=== PATIENT | male | born 1990 | race American Indian/Alaskan Native ===

== ENCOUNTER 2016-12-05 21:50 | Emergency (ER) | payer SELFPAY ==
--- NOTE | 2016-12-05 23:23 | Cat Scan Report ---
FINAL REPORT PROCEDURE: CT HEAD/BRAIN WO CON TECHNIQUE: Computerized tomography of the head was performed without contrast material. HISTORY: LOC with injury COMPARISON: No prior studies are available for comparison. FINDINGS: Skull and scalp: Normal. Paranasal sinuses: Normal. Ventricles and subarachnoid spaces: Normal. Cerebrum: No evidence of hemorrhage, acute infarction or mass . Cerebellum and brainstem: No evidence of hemorrhage, acute infarction or mass. Vasculature: Normal. Comments: None. IMPRESSION: Normal Examination
--- NOTE | 2016-12-05 23:27 | Cat Scan Report ---
FINAL REPORT EXAM: CT NECK WO CON HISTORY: LOC with injury TECHNIQUE: CT imaging is acquired through the neck/cervical spine without contrast. Transaxial, coronal and sagittal reformations are provided. PRIORS: None. FINDINGS: The cervical spine is intact. Vertebral body heights are preserved. No acute fracture or listhesis. Atlanto-dens interval and odontoid process are intact. Intervertebral disc spaces are preserved. No perivertebral soft tissue swelling or hematoma identified. Limited soft tissue exam of the visualized neck is unremarkable. IMPRESSION: No acute cervical spine fracture identified. Correlate with physical exam and follow up as warranted.
[2016-12-06] MEDS ORDERED: MOTRIN PO ONE (01:49)
--- NOTE | 2016-12-06 01:50 | Emergency Department Report ---
ED Head Trauma HPI - General Chief complaint: Head Injury Stated complaint: FALL Time Seen by Provider: 12/06/16 01:46 Source: patient Mode of arrival: Ambulatory Limitations: No Limitations - History of Present Illness Initial comments: This is a 26-year-old male. He is previously unknown to me. The patient presents to the ER complaining of head pain after he banged his head on a car door. He reports a transient loss of vision and felt like he "blacked out." For a second. However, he does indicate that he was awake the whole time. He denies neck pain, vomiting, chest pain, shortness of breath. The headache is throbbing, and constant. It does not radiate anywhere. MD Complaint: head injury, head pain -: Sudden Arrival Conditions: Negative: C-spine immobilization present, spinal board immobilization present Location: frontal Previous Trauma to this Area: No Place: work Radiation: none Severity: mild Consistency: constant Other Injuries: none Associated Symptoms: vision changes. denies: confusion, amnesia, repetitive questioning, nausea, vomiting, vertigo, weakness, tingling, neck pain - Related Data Allergies/Adverse reactions: Allergies Allergy/AdvReac Type Severity Reaction Status Date / Time No Known Allergies Allergy Unverified 12/05/16 22:14 ED Review of Systems ROS: Stated complaint: FALL Other details as noted in HPI Constitutional: denies: fever Eyes: denies: vision change ENT: denies: epistaxis Respiratory: denies: cough Cardiovascular: denies: chest pain Gastrointestinal: denies: vomiting Genitourinary: as per HPI Musculoskeletal: as per HPI Skin: as per HPI Neurological: as per HPI. denies: confusion, abnormal gait Psychiatric: as per HPI ED Past Medical Hx - Past Medical History Previous Medical History?: No - Social History Smoking Status: Current Some Day Smoker Substance Use Type: Alcohol ED Physical Exam - General Limitations: No Limitations General appearance: alert, in no apparent distress - Head Head exam: Present: atraumatic, normocephalic - Eye Eye exam: Present: normal appearance, PERRL, EOMI, other (visual acuity intact to finger counting, color perception, reading at a close distance). Absent: nystagmus - ENT ENT exam: Present: normal exam, normal orophraynx, mucous membranes moist, TM's normal bilaterally, normal external ear exam - Neck Neck exam: Present: normal inspection, full ROM. Absent: tenderness, meningismus - Respiratory Respiratory exam: Present: normal lung sounds bilaterally. Absent: respiratory distress, wheezes, rales, rhonchi, stridor, chest wall tenderness, accessory muscle use, decreased breath sounds, prolonged expiratory - Cardiovascular Cardiovascular Exam: Present: regular rate, normal rhythm, normal heart sounds. Absent: bradycardia, tachycardia, irregular rhythm, systolic murmur, diastolic murmur, rubs, gallop - GI/Abdominal GI/Abdominal exam: Present: soft, normal bowel sounds. Absent: distended, tenderness, guarding, rebound, rigid, pulsatile mass - Rectal Rectal exam: Present: deferred - Extremities Exam Extremities exam: Present: normal inspection, full ROM, normal capillary refill. Absent: tenderness, pedal edema, joint swelling, calf tenderness - Back Exam Back exam: Present: normal inspection, full ROM. Absent: tenderness, CVA tenderness (R), CVA tenderness (L), muscle spasm, paraspinal tenderness, vertebral tenderness - Neurological Exam Neurological exam: Present: alert, oriented X3 (patient able to add, multiply, recall 3 words immediately, and in 5 minutes.), normal gait, other (Extraocular movements intact. Tongue midline. No facial droop. Facial sensation intact to light touch in the V1, V2, V3 distribution bilaterally. 5 and 5 strength in 4 extremities.. Sensation is intact to light touch in 4 extremities.). Absent : motor sensory deficit - Psychiatric Psychiatric exam: Present: normal affect, normal mood - Skin Skin exam: Present: warm, dry, intact, normal color. Absent: rash ED Course Vital Signs 12/05/16 12/06/16 22:11 02:28 Temperature 98 F Pulse Rate 74 80 Respiratory 18 18 Rate Blood Pressure 123/86 Blood Pressure 113/79 [Left] O2 Sat by Pulse 100 98 Oximetry - Reevaluation(s) Reevaluation #1: 12/06/16 01:48 Differential diagnosis: Mild head injury, concussion Assessment and plan: 26-year-old male with mild blunt head injury, most likely concussion. Has a GCS of 15, with an NIH score of 0. She was improved after ibuprofen. CT scan of the brain and cervical spine are negative. Clinically sober at this time. Concussion instructions are reviewed with the patient. - Radiology Data Radiology results: report reviewed, image reviewed non contrast ct scan of the brain and c spine are negative - Core Measures Measure Exclusions: not indicated - NEXUS Criteria Focal neurological deficit present: No Midline spinal tenderness present: No Altered level of consciousness: No Intoxication present: No Distracting injury present: No NEXUS results: C-Spine can be cleared clinically by these results. Imaging is not required. Critical care attestation.: If time is entered above; I have spent that time in minutes in the direct care of this critically ill patient, excluding procedure time. ED Disposition Clinical Impression: Concussion Disposition: DC-01 TO HOME OR SELFCARE Is pt being admited?: No Does the pt Need Aspirin: No Condition: Stable Instructions: Concussion (ED), Minor Head Injury (ED) Additional Instructions: Rest and avoid heavy lifting. Avoid strenuous physical activity. Follow up with a primary care doctor within the next 2 weeks. Symptoms of concussion include dizziness, lightheadedness, fogginess, forgetfulness. Take Tylenol every 4 hours, alternating with ibuprofen every 6 hours with food as needed for pain. Return to the ER right away with confusion, projectile vomiting, weakness , numbness, chest pain, shortness of breath. Referrals: PRIMARY CAREMD [Primary Care Provider] - 3-5 Days ALYSSA ARECHIGA MD [Staff Physician] - 3-5 Days [facility] [Provider Group] - 3-5 Days Forms: Work/School Release Form(ED)
[2016-12-06 02:28] VITALS: BP 113/79
== END 2016-12-06 02:28 | disposition home or self-care (01) ==
LOC: ED 21:50
DX: S06.0X0A Concussion without loss of consciousness, initial encounter (principal); F17.200 Nicotine dependence, unspecified, uncomplicated; W18.09XA Striking against other object with subsequent fall, initial encounter; Y93.89 Activity, other specified; Y99.8 Other external cause status; Y92.89 Other specified places as the place of occurrence of the external cause
CPT/HCPCS: 70450; 70490